=== PATIENT | female | born 1985 | race African-American/Black ===

== ENCOUNTER 2017-01-13 10:56 | Emergency (ER) | payer OTHER ==
[2017-01-13 11:19] VITALS: BMI 39.9
--- NOTE | 2017-01-13 12:38 | PDOC ---
History of Present Illness - General History Source: Patient Exam Limitations: No Limitations - History of Present Illness Initial Comments: 01/13/17 13:14 The patient is a 31 year old female, LMS Dec 17, 2016, with a cardiac stent ( placed on November 29, 2016) and recent [place], who is referred to the ER by Dr. Sawyer with fever, coughing, and generalized body aches for 3 days. Patient states her baby was diagnosed with flu four days ago. Patient states she woke up 3 days ago feeling hot with generalized body aches, chills, congestion, and trouble breathing. Patient states she has been taking tylenol for the fever and drinking gatorade. She states the tylenol medication only relieves the fever for a few hours. Patient says she last took tylenol today at 6AM to visit Dr. Sawyer. She denies getting a flu shot this year. Patient reports she has no appetite secondary to the symptoms. Patient says her doctor recently called her last week reporting that her echocardiogram is normal. Denies nausea, vomiting, diarrhea Denies chest pain, heart palpitations, diaphoresis Denies weakness, dizziness, or headache <Michelle Rossi - Last Filed: 01/13/17 13:14> <Elizabeth Barry - Last Filed: 01/13/17 21:53> - General Chief Complaint: Weakness Stated Complaint: FEVER, COUGH (PCP SENT) Time Seen by Provider: 01/13/17 12:19 Past History <Michelle Rossi - Last Filed: 01/13/17 13:14> - Past Medical History Cardiac Disorders: Yes (cad) - Surgical History Cardiac Surgery: Yes (stent) - Immunization History Immunization Up to Date: No - Psycho/Social/Smoking Cessation Hx Anxiety: No Suicidal Ideation: No Smoking History: Never smoked Have you smoked in the past 12 months: No Information on smoking cessation initiated: No Hx Alcohol Use: No Drug/Substance Use Hx: No Substance Use Type: None <Elizabeth Barry - Last Filed: 01/13/17 21:53> - Past Medical History Allergies/Adverse Reactions: Allergies Allergy/AdvReac Type Severity Reaction Status Date / Time No Known Allergies Allergy Verified 01/13/17 11:14 Home Medications: Ambulatory Orders Unobtainable [Unobtainable] 01/13/17 Review of Systems - Review of Systems Able to Perform ROS?: Yes Comments:: 01/13/17 13:16 GENERAL/CONSTITUTIONAL: Fever, chills, sweats, generalized weakness, loss of appetite. HEAD, EYES, EARS, NOSE AND THROAT: No change in vision. No ear pain or discharge. No sore throat. CARDIOVASCULAR: Shortness of breath. No chest pain. RESPIRATORY: Cough. No wheezing, or hemoptysis. GASTROINTESTINAL: No nausea, vomiting, diarrhea or constipation. GENITOURINARY: No dysuria, frequency, or change in urination. MUSCULOSKELETAL: No joint or muscle swelling or pain. No neck or back pain. SKIN: No rash NEUROLOGIC: No headache, vertigo, loss of consciousness, or change in strength/ sensation. ENDOCRINE: No increased thirst. No abnormal weight change. HEMATOLOGIC/LYMPHATIC: No anemia, easy bleeding, or history of blood clots. ALLERGIC/IMMUNOLOGIC: No hives or skin allergy. <Uts,Michelle - Last Filed: 01/13/17 13:14> *Physical Exam - Vital Signs Last Vital Signs Temp Pulse Resp BP Pulse Ox 102.7 F H 111 H 20 98/75 98 01/13/17 11:16 01/13/17 11:16 01/13/17 11:16 01/13/17 11:16 01/13/17 11:16 - Physical Exam Comments: 01/13/17 13:18 GENERAL: Awake, alert, and fully oriented, in no acute distress HEAD: No signs of trauma EYES: PERRLA, EOMI, sclera anicteric, conjunctiva clear ENT: Dry mucous membranes. Auricles normal inspection, hearing grossly normal, nares patent, oropharynx clear without exudates. NECK: Normal ROM, supple, no lymphadenopathy, JVD, or masses LUNGS: Breath sounds equal, clear to auscultation bilaterally. No wheezes, and no crackles HEART: Regular rate and rhythm, normal S1 and S2, no murmurs, rubs or gallops ABDOMEN: Soft, nontender, normoactive bowel sounds. No guarding, no rebound. No masses EXTREMITIES: Normal range of motion, no edema. No clubbing or cyanosis. No cords, erythema, or tenderness NEUROLOGICAL: Cranial nerves II through XII grossly intact. Normal speech, normal gait SKIN: Warm, Dry, normal turgor, no rashes or lesions noted. <Uts,Mihcelle - Last Filed: 01/13/17 13:14> - Vital Signs Last Vital Signs Temp Pulse Resp BP Pulse Ox 102.7 F H 111 H 20 98/75 98 01/13/17 11:16 01/13/17 11:16 01/13/17 11:16 01/13/17 11:16 01/13/17 11:16 <Elizabeth Barry - Last Filed: 01/13/17 21:53> ED Treatment Course - LABORATORY CBC & Chemistry Diagram: 01/13/17 13:20 01/13/17 13:20 <Elizabeth Barry - Last Filed: 01/13/17 21:53> Medical Decision Making - Medical Decision Making 01/13/17 14:24 Pt notes some improvement with IV tylenol and fluids. She still has elevated temp, but she has been instructed by her peanut separator not to take NSAIDs due to prior history ([place] secondary to sudafed overuse- possibly vasospasm? but has a stent). Encouraged her to continue to drink penty of fluids. Her symptom started 4 days ago, so tamiflu would not be beneficial at this time. Stable for DC home. <Elizabeth Barry - Last Filed: 01/13/17 21:53> *DC/Admit/Observation/Transfer - Attestations Scribe Attestion: 01/13/17 13:19 Documentation prepared by Michelle Rossi, acting as certified medical records coder for Elizabeth Barry MD. <Michelle Rossi - Last Filed: 01/13/17 13:14> - Discharge Dispostion Admit: No <Elizabeth Barry - Last Filed: 01/13/17 21:53> Diagnosis at time of Disposition: Influenza B - Discharge Dispostion Disposition: HOME Condition at time of disposition: Stable - Referrals Referrals: Whitney Sawyer [Primary Care Provider] - - Patient Instructions Printed Discharge Instructions: DI for Influenza -- Adult
[2017-01-13] MEDS ORDERED: ACETAMINOPHEN 1000 MG/100 ML VIAL (NON FORMULARY) IVPB ONE (12:41)
[2017-01-13] MEDS ORDERED: SODIUM CHLORIDE 1,000 ML IV STA (12:41)
[2017-01-13] MEDS ORDERED: ACETAMINOPHEN INJECTION 100 ML IVPB ONE (13:11)
[2017-01-13 13:36] LABS: BASOPHIL 0.3 % (0-2.0); MCHC 31.7 g/dl (32.0-36.0); MEAN CELL VOLUME 82.1 fl (80-96); MEAN PLT VOLUME 9.2 fl (7.5-11.1); NEUTROPHILS 69.8 % (42.8-82.8); PLATELET COUNT 235 K/MM3 (134-434); RDW 16.4 % (11.6-15.6); WHITE BLOOD COUNT 4.4 K/mm3 (4.0-10.0)
[2017-01-13 13:40] LABS: URINE APPEARANCE CLEAR; URINE BILIRUBIN NEGATIVE (NEGATIVE); URINE BLOOD NEGATIVE (NEGATIVE); URINE COLOR YELLOW; URINE GLUCOSE (UA) NEGATIVE (NEGATIVE); URINE KETONE TRACE (NEGATIVE); URINE LEUK ESTERASE NEGATIVE (NEGATIVE); URINE NITRITE NEGATIVE (NEGATIVE); URINE PROTEIN NEGATIVE (NEGATIVE); URINE UROBILINOGEN NEGATIVE E.U./dl (0.2-1.0)
[2017-01-13 13:57] LABS: ALBUMIN 3.8 g/dl (3.4-5.0); ANION GAP 9 (8-16); BILIRUBIN,TOTAL 0.4 mg/dL (0.2-1.0); CALCIUM 8.7 mg/dL (8.5-10.1); CO2 27 mmol/L (21-32); CREATININE 0.9 mg/dL (0.55-1.02); GLUCOSE,RANDOM 98 mg/dL (74-106); SGOT/AST 35 U/L (15-37); SGPT/ALT 42 U/L (12-78); TOT PROT 7.6 g/dl (6.4-8.2)
[2017-01-13 13:59] LABS: ALK PHOS 34 U/L (45-117)
[2017-01-13 15:47] VITALS: BP 116/48; PULSE 97; TEMP 101.1
== END 2017-01-13 14:35 | disposition home or self-care (01) ==
LOC: JER 10:56
PROC: 3E0337Z Introduction of Electrolytic and Water Balance Substance into Peripheral Vein, Percutaneous Approach (ICD-10-PCS; principal; 2017-01-13)
PROC: 3E033NZ Introduction of Analgesics, Hypnotics, Sedatives into Peripheral Vein, Percutaneous Approach (ICD-10-PCS; 2017-01-13)
DX: J10.1 Influenza due to other identified influenza virus with other respiratory manifestations (principal); I25.2 Old myocardial infarction; Z95.5 Presence of coronary angioplasty implant and graft
CPT/HCPCS: 36415; 80053; 81003; 84703; 85025; 87086; 87804; 99282-25

== ENCOUNTER 2018-09-16 20:40 | Emergency (ER) | payer OTHER ==
--- NOTE | 2018-09-16 20:48 | PDOC ---
Rapid Medical Evaluation Time Seen by Provider: 09/16/18 20:42 Medical Evaluation: Allergies Allergy/AdvReac Type Severity Reaction Status Date / Time No Known Allergies Allergy Verified 01/13/17 11:14 09/16/18 20:42 I have performed a brief in-person evaluation of this patient. The patient presents with a chief complaint of: R flank pain several days, w/ fever of 102 F this am. Seen in UC today and had neg flu swab. H/o PNA, CAD, [place] , s/p 1 stent, ?low anemia Pertinent physical exam findings:Temp of 100.1F, stable otherwise I have ordered the following:ekg/cxr/labs The patient will proceed to the ED for further evaluation. 09/16/18 20:52 Discharge Disposition - Diagnosis Acute right flank pain - Referrals - Patient Instructions - Post Discharge Activity
[2018-09-16 20:49] VITALS: BP 128/65; PULSE 98; TEMP 100.1; BMI 39.1
[2018-09-16 21:29] LABS: EOS % 0.1 % (0-4.5); HEMATOCRIT 31.3 % (32.4-45.2); HEMOGLOBIN 9.6 GM/dL (10.7-15.3); LYMPH % 24.3 % (8-40); MCH 20.5 pg (25.7-33.7); MCHC 30.7 g/dl (32.0-36.0); MONO % 12.5 % (3.8-10.2); NEUT % 63.1 % (42.8-82.8); PLATELET COUNT 298 K/MM3 (134-434); RBC 4.67 M/mm3 (3.60-5.2); RDW 19.3 % (11.6-15.6); WHITE BLOOD COUNT 4.1 K/mm3 (4.0-10.0)
[2018-09-16 21:32] LABS: ADD RBC MORPHOLOGY YES
[2018-09-16 21:52] LABS: ALBUMIN 3.4 g/dl (3.4-5.0); ALK PHOS 38 U/L (45-117); ANION GAP 9 MMOL/L (8-16); BILIRUBIN,TOTAL 0.6 mg/dL (0.2-1); BLOOD UREA NITROGEN 15 mg/dL (7-18); CALCIUM 8.6 mg/dL (8.5-10.1); CHLORIDE 107 mmol/L (98-107); CO2 23 mmol/L (21-32); CREATININE 0.6 mg/dL (0.55-1.3); GLUCOSE,RANDOM 87 mg/dL (74-106); LIPASE 108 U/L (73-393); POTASSIUM 3.7 mmol/L (3.5-5.1); SGOT/AST 15 U/L (15-37); SGPT/ALT 22 U/L (13-61); SODIUM 140 mmol/L (136-145)
[2018-09-16 22:03] LABS: URINE APPEARANCE CLEAR; URINE BILIRUBIN NEGATIVE (<2.0 mg/dL); URINE COLOR YELLOW; URINE GLUCOSE (UA) NEGATIVE (NEGATIVE); URINE KETONE NEGATIVE (NEGATIVE); URINE LEUK ESTERASE NEGATIVE (NEGATIVE); URINE NITRITE NEGATIVE (NEGATIVE); URINE PROTEIN NEGATIVE (NEGATIVE); URINE UROBILINOGEN NEGATIVE mg/dL (0.2-1.0)
--- NOTE | 2018-09-16 23:39 | PDOC ---
History of Present Illness - General Chief Complaint: Pain, Acute Stated Complaint: BODYACHE, ABDOMINAL PAIN Time Seen by Provider: 09/16/18 20:42 History Source: Patient Exam Limitations: No Limitations - History of Present Illness Travel History: No Initial Comments: 09/16/18 23:34 Best Contact:[phone] PCP: Dr. 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 Patient states she had a subjective fever earlier today and believes it was between 100-102 Fahrenheit. Patient states she did not take her temperature. Patient states she believes the pain is from a muscle strain 4 days ago but cannot recall how it happened. Pain is described as 1/2 dull nonradiating intermittent discomfort but is pain-free since arriving to the emergency department. The pain was alleviated at rest and while sitting in a massage chair. The pain is exacerbated on certain movements. Patient denies fever, chills, nausea/vomiting, headache, dizziness, lightheadedness, facial pains, sore throat, neck pain/stiffness, chest pain, shortness of breath, abdominal pains, flank pains, urinary symptoms, extremity numbness or tingling sensation. Patient was seen at the urgent care today and was informed she had a negative flu swab. Past History - Past Medical History Allergies/Adverse Reactions: Allergies Allergy/AdvReac Type Severity Reaction Status Date / Time No Known Allergies Allergy Verified 01/13/17 11:14 Home Medications: Ambulatory Orders Aspirin [ASA -] 81 mg PO DAILY 09/16/18 Atorvastatin Ca [Lipitor] 80 mg PO DAILY 09/16/18 Clopidogrel Bisulfate [Plavix] 75 mg PO DAILY 09/16/18 Metoprolol Succinate 50 mg PO DAILY 09/16/18 Cardiac Disorders: Yes (cad, [place]) COPD: No - Surgical History Cardiac Surgery: Yes (stent) - Immunization History Immunization Up to Date: No - Suicide/Smoking/Psychosocial Hx Smoking History: Never smoked Have you smoked in the past 12 months: No Hx Alcohol Use: No Drug/Substance Use Hx: No Substance Use Type: None Review of Systems - Review of Systems Able to Perform ROS?: Yes Comments:: 09/16/18 23:39 CONSTITUTIONAL: Absent: fever, chills, diaphoresis, generalized weakness, malaise, loss of appetite HEENT: Absent: rhinorrhea, nasal congestion, throat pain, throat swelling, difficulty swallowing, mouth swelling, ear pain, eye pain, visual Changes CARDIOVASCULAR: Absent: chest pain, loss of consciousness, palpitations, irregular heart rate, peripheral edema RESPIRATORY: Absent: cough, shortness of breath, dyspnea with exertion, orthopnea, wheezing, stridor, hemoptysis GASTROINTESTINAL: Absent: abdominal pain, abdominal distension, nausea, vomiting, diarrhea, constipation, melena, hematochezia GENITOURINARY: Absent: dysuria, frequency, urgency, hesitancy, hematuria, flank pain, genital pain MUSCULOSKELETAL: Absent: myalgia, arthralgia, joint swelling SKIN: Absent: rash, itching, pallor HEMATOLOGIC/IMMUNOLOGIC: Absent: easy bleeding, easy bruising, lymphadenopathy, frequent infections ENDOCRINE: Absent: unexplained weight gain, unexplained weight loss, heat intolerance, cold intolerance NEUROLOGIC: Absent: headache, focal weakness or paresthesias, dizziness, unsteady gait, seizure, mental status changes, bladder or bowel incontinence PSYCHIATRIC: Absent: anxiety, depression, suicidal or homicidal ideation, hallucinations. Is the patient limited Georgian proficient: No *Physical Exam - Vital Signs Last Vital Signs Temp Pulse Resp BP Pulse Ox 100.1 F H 98 H 18 128/65 100 09/16/18 20:47 09/16/18 20:47 09/16/18 20:47 09/16/18 20:47 09/16/18 20:47 - Physical Exam Comments: 09/16/18 23:39 GENERAL: Well developed, well nourished. Awake and alert. No acute distress. HEENT: Normocephalic, atraumatic. PERRLA, EOMI. No conjunctival pallor. Sclera are non- icteric. Moist mucous membranes. Oropharynx is clear. NECK: Supple. Full ROM. No JVD. Carotid pulses 2+ and symmetric, without bruits. No thyromegaly. No lymphadenopathy. CARDIOVASCULAR: Regular rate and rhythm. No murmurs, rubs, or gallops. Distal pulses are 2+ and symmetric. PULMONARY: No evidence of respiratory distress. Lungs clear to auscultation bilaterally. No wheezing, rales or rhonchi. ABDOMINAL: +RUQ pain/ Mid right back Soft. Non-distended. No rebound or guarding. No organomegaly. Normoactive bowel sounds. MUSCULOSKELETAL Normal range of motion at all joints. No bony deformities or tenderness. No CVA tenderness. EXTREMITIES: No cyanosis. No clubbing. No edema. No calf tenderness. SKIN: Warm and dry. Normal capillary refill. No rashes. No jaundice. NEUROLOGICAL: Alert, awake, appropriate. Cranial nerves 2-12 intact. No deficits to light touch and temperature in face, upper extremities and lower extremities. No motor deficits in the in face, upper extremities and lower extremities. Normoreflexic in the upper and lower extremities. Normal speech. Toes are down- going bilaterally. Gait is normal without ataxia. PSYCHIATRIC: Cooperative. Good eye contact. Appropriate mood and affect. Heart Score/ECG Review - History History: Slightly suspicious - Electrocardiogram EKG: Normal - Age Age: >/= 65 - Risk Factors Risk Factors Heart Score: Yes Hx Obesity Based on the list above the patient has:: 1-2 risk factors - Troponin Troponin: </= normal limit - Score Heart Score - Total: 3 ED Treatment Course - LABORATORY CBC & Chemistry Diagram: 09/16/18 21:03 09/16/18 21:03 - ADDITIONAL ORDERS Additional order review: Laboratory Results 09/16/18 09/16/18 09/16/18 21:45 21:03 21:03 Sodium Potassium Chloride Carbon Dioxide Anion Gap BUN Creatinine Creat Clearance w eGFR Random Glucose Calcium Total Bilirubin AST ALT Alkaline Phosphatase Creatine Kinase 54 Troponin I < 0.02 Total Protein Albumin Lipase Serum , Qual Negative Urine Color Yellow Urine Appearance Clear Urine pH 5.0 Ur Specific [place] 1.024 Urine Protein Negative Urine Glucose (UA) Negative Urine Ketones Negative Urine Blood Negative Urine Nitrite Negative Urine Bilirubin Negative Urine Urobilinogen Negative Ur Leukocyte Esterase Negative 09/16/18 09/16/18 21:03 21:03 Sodium 140 Potassium 3.7 Chloride 107 Carbon Dioxide 23 Anion Gap 9 BUN 15 Creatinine 0.6 Creat Clearance w eGFR > 60 Random Glucose 87 Calcium 8.6 Total Bilirubin 0.6 AST 15 ALT 22 Alkaline Phosphatase 38 L Creatine Kinase 57 Troponin I < 0.02 Total Protein 7.0 Albumin 3.4 Lipase 108 Serum , Qual Urine Color Urine Appearance Urine pH Ur Specific [place] Urine Protein Urine Glucose (UA) Urine Ketones Urine Blood Urine Nitrite Urine Bilirubin Urine Urobilinogen Ur Leukocyte Esterase 09/16/18 21:03 RBC 4.67 MCV 67.0 L MCHC 30.7 L RDW 19.3 H MPV 8.0 D Neutrophils % 63.1 Lymphocytes % 24.3 D Monocytes % 12.5 H Eosinophils % 0.1 D Basophils % 0.0 - RADIOLOGY Radiology Studies Ordered: Category Date Time Status ABDOMEN US -LIMITED [US] Stat Ultrasound 09/16/18 21:30 Completed Radiograph Interpretation: 09/16/18 23:39 Ultrasound/abdomen limited impression: Fatty liver versus hepatocellular disease. No gallstones. *DC/Admit/Observation/Transfer Diagnosis at time of Disposition: Back pain Qualifiers: Back pain location: thoracic back pain Chronicity: acute Back pain laterality: right Qualified Code(s): M54.6 - Pain in thoracic spine Abdominal pain Qualifiers: Abdominal location: right upper quadrant Qualified Code(s): R10.11 - Right upper quadrant pain Anemia Qualifiers: Anemia type: unspecified type Qualified Code(s): D64.9 - Anemia, unspecified - Discharge Dispostion Disposition: HOME Condition at time of disposition: Stable Decision to Admit order: No - Referrals Referrals: Oli Huddleston MD [Staff Physician] - Nav Delatorre MD [Staff Physician] - Rodger Duarte MD [Staff Physician] - - Patient Instructions Printed Discharge Instructions: DI for Abdominal Pain-Adult, DI for Thoracic Back Pain, Anemia Additional Instructions: Please follow-up with the supply technician and orthopedic surgeon listed on your discharge Tylenol as needed for pain Return back to the emergency department for severe/persistent or worsening symptoms Your hemoglobin today shows 9.6. It is very important that you follow-up with medical doctor listed on your discharge. - Post Discharge Activity
[2018-09-17 01:49] LABS: ANISOCYTOSIS 3+; MACROCYTOSIS 0; OVALOCYTE 1+; PLATELET ESTIMATE NORMAL
== END 2018-09-16 23:55 | disposition home or self-care (01) ==
LOC: JER 20:40
DX: R10.11 Right upper quadrant pain (principal); M54.6 Pain in thoracic spine; I25.10 Atherosclerotic heart disease of native coronary artery without angina pectoris; Z95.5 Presence of coronary angioplasty implant and graft; I25.2 Old myocardial infarction; Z87.01 Personal history of pneumonia (recurrent); D64.9 Anemia, unspecified
CPT/HCPCS: 36415; 71046-TC-FY; 76705-TC; 80053; 81003; 82550; 83690; 84484; 84703; 85025; 87086; 99283-25

== ENCOUNTER 2020-11-08 06:01 | Day surgery (SDC) | payer BC ==
[2020-11-05 10:38] VITALS: BMI 42.0
[2020-11-08] MEDS ORDERED: fentaNYL CITRATE 250 MCG/5 ML VIAL ONE (09:07)
[2020-11-08] MEDS ORDERED: PROPOFOL 20 ML ONE (09:07)
[2020-11-08] MEDS ORDERED: MIDAZOLAM HCL 2 MG/2 ML SINGLE DOSE VIAL ONE ×2 (09:08)
[2020-11-08] MEDS ORDERED: ceFAZolin SODIUM 1 GM VIAL IVPB ONE (09:40)
[2020-11-08] MEDS ORDERED: ceFAZolin SODIUM 1 GM VIAL ONE (10:03)
[2020-11-08] MEDS ORDERED: KETOROLAC TROMETHAMINE 30 MG/1 ML VIAL ONE (10:03)
[2020-11-08] MEDS ORDERED: DEXAMETHASONE SOD PHOSPHATE 4 MG/1 ML VIAL ONE (10:03)
[2020-11-08] MEDS ORDERED: METOPROLOL TARTRATE 5 MG/5 ML VIAL ONE (10:03)
[2020-11-08] MEDS ORDERED: ONDANSETRON 4 MG/2 ML VIAL IVPUSH PRN (10:42)
[2020-11-08 12:09] VITALS: PULSE 67
[2020-11-08 13:00] VITALS: BP 116/72; TEMP 98.2
== END 2020-11-08 13:37 | disposition home or self-care (01) ==
LOC: JASU-SURG 06:01
PROVIDERS: ATTEND Obstetrics & Gynecology
PROC: 0UB98ZX Excision of Uterus, Via Natural or Artificial Opening Endoscopic, Diagnostic (ICD-10-PCS; principal; 2020-11-08 09:00)
PROC: 0UDB7ZX Extraction of Endometrium, Via Natural or Artificial Opening, Diagnostic (ICD-10-PCS; 2020-11-08 09:00)
DX: N84.0 Polyp of corpus uteri (principal); N92.0 Excessive and frequent menstruation with regular cycle; D25.9 Leiomyoma of uterus, unspecified; E66.01 Morbid (severe) obesity due to excess calories; Z68.41 Body mass index [BMI] 40.0-44.9, adult; E78.5 Hyperlipidemia, unspecified; I25.2 Old myocardial infarction
CPT/HCPCS: 81025; 86850; 86900; 86901; 88305-TC; 94760

== ENCOUNTER 2023-08-02 12:11 | Emergency (ER) | payer BC, OTHER ==
[2023-08-02 12:26] VITALS: BP 135/88; PULSE 76; RESP 18; TEMP 99.1; BMI 42.8
== END 2023-08-02 13:27 | disposition home or self-care (01) ==
LOC: JERFT 12:11
DX: H02.843 Edema of right eye, unspecified eyelid (principal); H02.846 Edema of left eye, unspecified eyelid; T78.40XA Allergy, unspecified, initial encounter
CPT/HCPCS: 99283-25